=== PATIENT | female | born 1975 | race Two or more races ===

== ENCOUNTER 2020-04-10 12:06 | Outpatient (REF) | payer MEDICAID, SELFPAY | END 2020-04-10 12:07 | disposition home or self-care (01) | LOC: HO.LAB 12:06 | PROVIDERS: Visit Provider Internal Medicine | DX: Z20.822 Contact with and (suspected) exposure to COVID-19 (principal) | CPT/HCPCS: 36415; C9803; U0003 ==

== ENCOUNTER 2020-05-19 13:10 | Outpatient (REF) | payer MEDICAID, SELFPAY | END 2020-05-19 13:11 | disposition home or self-care (01) | LOC: HO.LAB 13:10 | PROVIDERS: Visit Provider Internal Medicine | DX: Z20.822 Contact with and (suspected) exposure to COVID-19 (principal) | CPT/HCPCS: 36415; C9803; U0003; U0005 ==

== ENCOUNTER 2020-09-02 09:41 | Outpatient (REF) | payer MEDICAID, SELFPAY ==
--- NOTE | 2020-09-02 10:00 | PFT_ITS ---
INDICATION: Asthma. SPIROMETRY: The FEV1 to FVC 84% with an FEV1 of 2.37 L, which is 82% predicted and an FVC of 2.81 L, which is 80% predicted. No significant response to bronchodilators noted. Maximum voluntary ventilation 63% of predicted. LUNG VOLUMES: Total lung capacity 82% of predicted with residual volume of 78% predicted and expiratory reserve volume of 35% predicted likely from an elevated BMI. DIFFUSION CAPACITY: DLCO 74% predicted. COMPARISONS: Not available. INTERPRETATION: No obstructive nor restrictive ventilatory defects identified. No significant response to bronchodilators noted. There is a moderate decrease in maximum voluntary ventilation, which could be secondary to deconditioning, although cannot rule out neuromuscular conditions. Lung volumes do demonstrate a low normal total lung capacity, and a decrease in the expiratory reserve volume secondary to elevated BMI, although occult interstitial lung conditions cannot be ruled out. There is also a mild diffusion impairment. Clinical correlation is warranted. Consider methacholine challenge to assess for hyperreactive airways and a diagnosis of asthma. MD CHANA Arthur/MOD[facility] / [id number]
== END 2020-09-02 09:42 | disposition home or self-care (01) ==
LOC: HO.RESP 09:41
PROVIDERS: PCP Internal Medicine; Visit Provider Internal Medicine
DX: J45.20 Mild intermittent asthma, uncomplicated (principal)
CPT/HCPCS: 94060; 94727; 94729

== ENCOUNTER 2021-03-09 10:51 | Outpatient (REF) | payer MEDICAID, SELFPAY | END 2021-03-09 10:52 | disposition home or self-care (01) | LOC: HO.LAB 10:51 | PROVIDERS: Visit Provider Internal Medicine | DX: Z20.822 Contact with and (suspected) exposure to COVID-19 (principal) | CPT/HCPCS: C9803; U0003; U0005 ==